=== PATIENT | female | born 1990 | race Caucasian/White ===

== ENCOUNTER → 2016-08-02 | Outpatient (CLI) | payer OTHER ==
[~2016-08-02] MED LIST: DEXAMETHASONE SOD PHOS 4 MG/ML VIAL ONE; DICLOFENAC SODIUM 37.5 MG/ML VIAL IV PUSH ONE; Z.0.BCPILL PO; [UNRECOGNIZED DRUG - CODE] PO; fentaNYL CITRATE 250 MCG/5 ML AMP ONE
[2016-08-02 14:40] LABS: AUTOMATED NEUTROPHIL # 4.5 TH/MM3 (1.8-7.7); BASOPHIL % 0.6 % (0.0-2.0); EOSINOPHIL # 0.1 TH/MM3 (0-0.4); EOSINOPHIL % 1.3 % (0.0-4.0); HEMATOCRIT 37.9 % (35.0-46.0); HEMO FLAGS DIFF FINAL; LYMPH % 22.1 % (9.0-44.0); LYMPHOCYTE # 1.4 TH/MM3 (1.0-4.8); MEAN CORPUSCULAR HEMOGLOBIN 27.7 PG (27.0-34.0); MEAN CORPUSCULAR HGB CONC 34.2 % (32.0-36.0); MONO % 6.4 % (0.0-8.0); NEUT % 69.6 % (16.0-70.0); PLATELET COUNT 297 TH/MM3 (150-450); RED BLOOD COUNT 4.68 MIL/MM3 (4.00-5.30); RED CELL DISTRIBUTION WIDTH 13.6 % (11.6-17.2); WHITE BLOOD COUNT 6.4 TH/MM3 (4.0-11.0)
[2016-08-02 14:53] LABS: BACTERIA, URINE OCC /hpf; BLOOD, URINE NEG (NEG); COMMENT (UR) CULT NOT INDICATED; CULTURE IF INDICATED CULT NOT INDICATED; GLUCOSE,URINE NEG (NEG); KETONE, URINE NEG (NEG); MUCUS URINE FEW /lpf (OCC); NITRITE,URINE NEG (NEG); PH, URINE 7.5 (5.0-8.5); SQUAMOUS EPITHELIAL CELL URINE <1 /hpf (0-5); URINE COLOR COLORLESS (YELLW/STRAW)
[2016-08-02 15:18] LABS: BETA HCG QUANT LESS THAN 1 MIU/ML (0-5)
--- NOTE | 2016-08-03 17:09 | EKG ---
Date Performed: 08/02/2016 Time Performed: 14:20:28 PTAGE: 26 years EKG: Sinus rhythm WITH SINUS ARRHYTHMIA POSSIBLE RIGHT VENTRICULAR CONDUCTION DELAY BORDERLINE ECG NO PREVIOUS TRACING DOCTOR: Sunny Johnson Interpretating Date/Time 08/03/2016 17:05:26
== END ==
LOC: CPRE 13:53
PROVIDERS: ATTEND Obstetrics & Gynecology
DX: Z01.810 Encounter for preprocedural cardiovascular examination (principal); Z01.812 Encounter for preprocedural laboratory examination; N92.0 Excessive and frequent menstruation with regular cycle; N94.6 Dysmenorrhea, unspecified; R10.2 Pelvic and perineal pain; R94.31 Abnormal electrocardiogram [ECG] [EKG]
CPT/HCPCS: 36415; 81001; 84702; 85025; 93005

== ENCOUNTER → 2016-08-04 | Day surgery (SDC) | payer OTHER ==
--- NOTE | 2016-08-03 08:48 | MH ---
cc: TRES MARTINEZ DATE OF ADMISSION: 08/04/2016 ADMITTING DIAGNOSIS Menorrhagia, dysmenorrhea. HISTORY OF PRESENT ILLNESS The patient is 26-year-old white female, para 0, with a history of increasing dysmenorrhea and intermittent menorrhagia. She reports menarche at age 10, cycles were always heavy, long and painful. She began OCP at age 15 with only partial relief. At age 20 she started continuous OCPs but still has severe dysmenorrhea with breakthrough bleeding. Ultrasound done 07/09/2016 showed endometrial thickening and possible adenomyosis. She is now admitted for surgical evaluation. PAST MEDICAL HISTORY Previous surgery rhinoplasty in 2008 MEDICATIONS Continuous OCPs. ALLERGIES None. TRANSFUSIONS None. OB HISTORY None. SOCIAL HISTORY She is . Works at [employer] in [facility]. Has completed an RN degree and is in the process of taking Whisk (formerly Zypsee). Alcohol occasional. Tobacco none. Drugs none. FAMILY HISTORY Noncontributory. PHYSICAL EXAMINATION GENERAL: A well-nourished, well-developed female. VITAL SIGNS: Stable. HEENT: Exam is normal. CHEST: Clear. HEART: Regular rate. BREASTS: Symmetrical. ABDOMEN: Benign. PELVIC: Normal external genitalia and BUS. The vagina is normal. Cervix normal. Uterus normal size, shape, anterior. No adnexal masses. ASSESSMENT As above. PLAN She is now admitted for hysteroscopy, D&C and laparoscopy. While in the office I explained the procedures, the risks, benefits and complications. The patient elected to proceed. MD ROBERT Sherman/MANNIE /8:29 AM 8:40 AM
[~2016-08-04] VITALS: Ht 172.7 cm; Wt 90.1 kg
[~2016-08-04] MED LIST changes: +ACETAMINOPHEN 1000 MG/100 ML VIAL IV ONE; +BUPIVACAINE/EPINEPHRINE 0.25% PF 30 ML VIAL ONE; +DEXAMETHASONE SOD PHOS 4 MG/ML VIAL IV ONE; -DEXAMETHASONE SOD PHOS 4 MG/ML VIAL ONE; +FAMOTIDINE 20 MG/2 ML VIAL ONE; +INSULIN HUMAN REGULAR 1,000 UNITS/10 ML VIAL SQ PRN; +LACTATED RINGER'S 1000 ML IV SCH; +METHYLENE BLUE 10 MG/ML VIAL ONE; +METOCLOPRAMIDE HCL 10 MG/2 ML VIAL ONE; +METOPROLOL TARTRATE 25 MG TAB PO PRN; +MIDAZOLAM HCL 2 MG/2 ML VIAL ONE; +NEOSTIGMINE 3 MG/3 ML SYR IV ONE; +ONDANSETRON HCL 4 MG/2 ML VIAL IV PUSH ONE; +ONDANSETRON HCL 4 MG/2 ML VIAL ONE; +PROPOFOL 200 MG/20 ML AMP IV ONE; +SODIUM CHLORID 0.9% 500 ML IV SCH; +SODIUM CHLORIDE 0.9% INJ 100 ML ONE; -Z.0.BCPILL PO; +ceFAZolin INJ 1,000 MG VIAL ONE
[2016-08-04 05:43] VITALS: BP 126/70; PULSE 85; RESP 20; TEMP 99; O2SAT 99
[2016-08-04 10:30] VITALS: BP 105/64; PULSE 80; RESP 20; TEMP 98.2; O2SAT 100
--- NOTE | 2016-08-04 13:34 | MP ---
cc: TRES MARTINEZ DATE OF SURGERY 08/04/2016 PREOPERATIVE DIAGNOSIS Dysmenorrhea, menorrhagia POSTOPERATIVE DIAGNOSIS Dysmenorrhea, menorrhagia, pathology pending. PROCEDURE Hysteroscopy, D&C, laparoscopy and chromotubation methylene blue. ANESTHESIA General ET SURGEON Tres Martinez MD FILER HELPER Melody Barroso ESTIMATED BLOOD LOSS Less than 10 cc FLUIDS 800 cc of crystalloid OBJECTIVE FINDINGS Following induction of adequate general endotracheal anesthesia, the patient was prepped and draped supine on the operating table in the dorsolithotomy position in the usual sterile fashion with the bladder being drained via in and out catheterization. Exam under anesthesia revealed a normal size, shape anterior uterus. No adnexal masses palpable. A heavy weighted speculum was placed in the posterior fornix of the vagina. The anterior lip of the cervix grasped with a single-toothed tenaculum. Cervix and uterus sounded to 8 cm. The cervix then dilated to #16 Hanks dilator. The hysteroscope was passed revealing a normal cervix, normal cervical canal, normal endometrium. The scope was withdrawn. Endocervical curettings obtained with a small serrated curette, endometrium with a small sharp curette and HUMI placed. The vaginal instruments removed. The glass blowing lathe operator's gloves changed. The abdomen was opened through a 1/2 cm infraumbilical incision using a knife. A 5-minute trocar was placed, laparoscope inserted. Under direct visualization, a second port was placed suprapubic. Pelvic contents revealed a normal size, shape anterior uterus. Normal tubes. Normal ovaries. Normal cul-de-sacs. Normal liver edge. Normal appendix and normal bowel anatomy. Methylene blue was now injected through the HUMI and observed to readily spill from both tubes. The procedure was then terminated with gas being allowed to escape. The ports removed and each port site injected with 5 cc of Marcaine and 0.5% epinephrine. The wounds were closed with 3-0 Monocryl. Sterile bandage was applied. All counts were correct. The HUMI was removed from the vagina. The legs taken out of the stirrups. She was awakened and taken to the Recovery Room in good condition. MD ROBERT Sherman/JASPER /7:50 AM /1:27 PM
== END | disposition home or self-care (01) ==
LOC: HSDC 05:07
PROVIDERS: ATTEND Obstetrics & Gynecology
DX: N92.0 Excessive and frequent menstruation with regular cycle (principal); N94.6 Dysmenorrhea, unspecified; N72 Inflammatory disease of cervix uteri
CPT/HCPCS: 00840; 49320; 58350; 58558; 88305; J0131; J0690; J1100; J1130; J2250; J2405; J2710; J2765; J3010; J7120